=== PATIENT | female | born 1955 | race Caucasian/White ===

== ENCOUNTER → 2020-11-23 11:12 | Outpatient (CLI) | payer MEDICARE, SELFPAY ==
[2020-11-23 13:07] LABS: COVID19 -Nasal RAPID Negative (Negative)
== END ==
PROVIDERS: Visit Provider Physician Assistant
DX: Z20.822 Contact with and (suspected) exposure to COVID-19 (principal)
CPT/HCPCS: 87635; C9803

== ENCOUNTER 2020-11-25 09:18 | Day surgery (SDC) | payer MEDICARE, SELFPAY ==
[2020-11-23 14:50] VITALS: BMI 39.0
[2020-11-25] VITALS (19 sets, daily range): BP systolic 90–140; BP diastolic 39–83; PULSE 67–104; RESP 10–18; TEMP 35.6–36.8; O2SAT 85–99; BMI 37.0
[2020-11-25] MEDS: LACTATED RINGERS 1,000 ML 42 ML IV (10:05)
[2020-11-25] MEDS: CELECOXIB 200 MG CAPSULE PO (10:08)
[2020-11-25] MEDS: ACETAMINOPHEN 325 MG TABLET 975 MG PO (10:08)
--- NOTE | 2020-11-25 10:14 | PM.PREOP ---
Pre-operative Note COVID-19 COVID-19 status: Negative Result date/Date tested (Pos, Neg/Pending): 11/23/20 Interval Note History & Physical reviewed/Exam performed by Physician: Yes Changes to H&P: No H&P completed within 30 days and has changed as indicated here:: Plan for R TKA
[2020-11-25] MEDS: CEFAZOLIN 2 GM/100 ML FROZ.PIGGY IV ×2 (10:43→18:56)
[2020-11-25] MEDS: TRANEXAMIC ACID 1,000 MG in SODIUM CHLORIDE 0.9% 100 ML 400 ML IV ×2 (11:00→12:16)
--- NOTE | 2020-11-25 11:00 | DI.RAD.S_ITS ---
PROCEDURE: XR KNEE RT 1TO2V INDICATIONS: RIGHT TOTAL KNEE TECHNIQUE: 2 view(s) of the knee acquired. COMPARISON: None. FINDINGS: Bones: Patient is status post knee joint arthroplasty. Hardware components are in expected positions. Visualized bony structures are intact. Soft tissues: Overlying postoperative changes are noted. IMPRESSION: Expected appearance following knee arthroplasty. Dictated by: El Graf M.D. on 11/25/2020 at 16:44 Approved by: El Graf M.D. on 11/25/2020 at 16:44
--- NOTE | 2020-11-25 11:13 | SUR.OPER ---
Supine on padded OR bed, head on pillow, arms secured on padded arm boards at <90 degrees abduction, right knee is flexed at [address] Bolden knee positioner, padded foam brace at right thigh, safety belt at pelvis, folded bath blanket under heel of operative foot, tape over blanket over left lower leg.
[2020-11-25] MEDS: ROPIVACAINE 0.5% PF 5 MG/ML 20ML VIAL 10 ML INJ (11:28)
[2020-11-25] MEDS: MORPHINE 4 MG/ML INJ IM (11:29)
[2020-11-25] MEDS: KETOROLAC 30 MG/ML VIAL IM (11:31)
--- NOTE | 2020-11-25 12:46 | P.OP_ITS ---
Operative Date/Time/Diagnoses Date of procedure: 11/25/20 Time of procedure: 12:46 Pre-op diagnosis: right knee OA Post-op diagnosis: same Procedure & Clinicians Procedure: Right total knee arthroplasty Same procedure as scheduled: Yes Indications: Right knee osteoarthritis resistant to further conservative measures Surgeon: Mac Bolden Contact Lens Edge Buffer: Patrice Lombardi Anesthesia Type: General and Spinal Operative Notes Findings: Left knee osteoarthritis with [id number] articulation and large osteophytes. Closure Type: primary Specimen(s): none sent Prosthetic devices, grafts, tissues, transplants, or devices: Sanchez and nephew Journey 2 CR size 4 right Oxinium femur Size 3 right Journey tibial base plate Size 3-4 right 10 mm thick Journey 2 deep dish polyethylene 32 mm oval patellar button Estimated Blood Loss (mL): 200 Blood products transfused: none Tourniquet time (min): 72 Procedure in detail: Patient was met in the preoperative holding area where the site and side of surgery were marked by . informed consent had been reviewed in clinic was also reviewed the preoperative holding area. All last minute questions were answered. Patient was then brought back to the operating room where she received a spinal anesthetic then was induced under general anesthesia. The right thigh had a nonsterile tourniquet placed in the right lower extremity then prepped and draped in normal sterile fashion. A surgical time-out was performed verifying site and side of surgery as well as the name of the patient. An Esmarch was used to exsanguinate the right lower extremity and tourniquet was inflated 250 mm of mercury. A longitudinal incision over the anterior aspect of the knee was made in the skin using 10. Blade. A new 10. Blade was then used to elevate medial lateral flaps. A medial but parapatellar arthrotomy was then performed a medial peel was then performed as well as removal of Hoffa's fat pad. This point House's line was then marked as well as the entry site for the femoral drill and the tibial drill. The ACL was removed as well as the lateral meniscus. This point the drill was then used to enter the femoral and tibial canals respectively. Intramedullary casa was placed inside the femur and a 5 degree right knee cutting block was then placed. This was pinned in the neutral slot cut the neutral slot. Intramedullary casa was then placed inside the tibia and the tibial block was pinned into place using the out box machine operator. A drop casa was then used for final tuning of the cutting block for the tibia. This was a 3rd pin was then placed. Tibial cut was then made with the oscillating saw taking care to not cut the patellar tendon MCL or the PCL. Tibial cut was then removed as well as the medial meniscus. This point the knee was brought into full extension and a 10 mm block balanced the knee in varus valgus and had full extension. The knee was then brought into flexion and the gap machine assistant was used and rotation was marked. This was compared to Whitesides line and compared to the epicondylar access which showed external rotation. Femur was then sized to size 4. A 5 in 1 size 4 cutting block was then pinned into place and all 5 cuts were then made. The cutting block was then removed as well as bony fragments. A trial size 4 right femoral component was then placed on the femur as well as a size 3 tibia with a 10 mm polyethylene. Tibial external rotation was marked using floating technique. The knee was balanced in varus valgus in extension through mid flexion flexion range of motion. The PCL was not overly tight. The patella was then freehan cut and was drilled for 32 mm oval button this button trial was then placed the knee was brought through range of motion with excellent patellar tracking. Trials were then removed local anesthetic was infiltrated into the periarticular soft tissues. The tibial tray was then placed back on the tibia and drilled and punched. Bony fragments were then placed inside the tibial canal and a femoral bone plug was then placed as well. Pulse lavage then used to thoroughly irrigate the cut surfaces of the femur tibia and patella. Cut surfaces were then dried. Cement was then mixed. Cement was then packed onto the cut surface of the tibia as well as the tibial keel hole. Cement was placed on the backside of the tibial tray. This was then malleted into place excess cement was removed. We then turned our attention to the femoral side cement was then finger packed on the cut surface of the femur as well as the locals. And placed on the feet of the femoral component. While trying to place the femoral component the femoral component kept this engaging from the impactor femur was attempted to be placed 4 times every time the instrumentation failed. At this point cement was then removed from the femur as well as the feet of the femoral component the cement on the tibia was allowed to fully cure. A new batch of cement was then mixed a new impactor was then opened and the femoral component was a leaf fully seated onto the impactor. Stem was placed into the feet of the femoral component as well as the cut surface of the femur with exception of the posterior condylar cut the component was then able to be successfully placed onto the femur. Excess cement was then removed. The 10 mm thick polyethylene was then placed and the knee was brought into full extension. Cement was then packed on the cut surface of the patella as well as between the patellar button clamped in place. Excess cement was then removed. Betadine was then placed in the wound allowed to sit for several minutes. At this point the tourniquet was let down hemostasis was obtained using electrocautery. The knee was then pulse lavaged with copious normal saline. The medial parapatellar arthrotomy was then closed over a radiolucent triangle. Closed with interrupted 1. Vicryl followed by running Quill suture followed by running 2 Vicryl in the fat layer followed by interrupted 2-0 Vicryl in the subcutaneous layer followed by running 3-0 Stratafix followed by Dermabond and Aquacel dressing Complications: none Post-operative Condition: stable Disposition: PACU Plan for aftercare: 24 hours post-op abx, ASA 81mg BID for 6 weeks for DVT prophyalxis, WBAT RLE
[2020-11-25] MEDS: OXYCODONE IR 5 MG TABLET PO (13:16)
[2020-11-25] MEDS: ONDANSETRON 4 MG/2 ML INJ IV ×2 (13:17→20:04)
[2020-11-25] MEDS: LACTATED RINGERS 1,000 ML 100 ML IV (14:49)
[2020-11-25] MEDS: IBUPROFEN 400 MG TABLET PO ×2 (14:51→16:06)
[2020-11-25] MEDS: ACETAMINOPHEN 325 MG TABLET 650 MG PO (16:05)
[2020-11-25] MEDS: ONDANSETRON 4 MG ODT PO (16:05)
--- NOTE | 2020-11-25 16:34 | PC.NURSE ---
Addendum entered by Pastora Quinn R.N. 11/25/20 21:45: Pt reports right knee pain barely there. Bladder scanned for 275 cc's and pt denies need to void or urge to void. Will continue to encourage po intake and iv fluids continue to infuse as ordered. Addendum entered by Pastora Quinn R.N. 11/25/20 20:46: Pt has 50 cc's clear, bileous emesis. Belching, but denies passage of flatus. Prefers to hold off on hs oral meds. No further c/o pain. No change in neurovascular status to RLE. Pt reports tingling to feet BL continues to resolve and improve. Zofran iv administered for nausea. Pt states desires to sleep. 02 2L nc sats 90%. Pt declines oral meds when offered and states pain to right knee is beginning to climb to 3/10. Prefers iv pain meds at this time. Addendum entered by Pastora Quinn R.N. 11/25/20 19:55: Pt up to commode with assistance and unable to void. Returned to bed and bladder scanned for 246 cc's. Phone call to Dr. Hardin to request pt's home med, Advair BID and cepacol lozenges to treat throat irritation. Addendum entered by Pastora Quinn R.N. 11/25/20 19:07: Pt reports nausea improved. Resting quietly. 02 2L per nc with sleep 91-93%. Addendum entered by Pastora Quinn R.N. 11/25/20 18:32: Pt reports right knee pain 4-5/10, but admits to nausea. Administered reglan as ordered. Denies urge to void. Addendum entered by Pastora Quinn R.N. 11/25/20 17:29: Pt reports pain to right knee increasing to 8/10. States nausea resolved. Administered 10 mg oxycodone and supported RLE on lengthwise pillow x 1 with ice packs x 2 to right knee. Pt now resting quietly in bed with eyes closed and reports pain is improving. Original Note: Pt awake and alert resting quietly in bed. Admits to slight nausea and zofran ODT was administered. Pt requests protein to eat and this was provided. Medicated with scheduled tylenol and ibuprofen as per emar for pain 3/10 to right knee, dull in nature. Saul wrap to right knee dry and intact and ice to site. Pt admits to tingling to feet BL and is able to wiggle toes to feet BL and reports positive sensation when touched. Palpable pedal pulses BL. 02 @ 1.[address] with continuous pulse oximeter measuring 92%. I.S. @ bedside. Pt's spouse @ bedside. BL calf scd's in place. Encouraged pt to call for needs or if desires additional pain medications. Pt verbalizes understanding and agreement.
[2020-11-25] MEDS: OXYCODONE IR 5 MG TABLET 10 MG PO (16:58)
[2020-11-25] MEDS: METOCLOPRAMIDE 10 MG/2 ML INJ IV (18:17)
[2020-11-25] MEDS: BENZOCAINE/MENTHOL 1 LOZ PKT 1 EACH PO (20:02)
[2020-11-25] MEDS: HYDROMORPHONE 0.5 MG INJ 0.2 MG IV (20:56)
[2020-11-25] MEDS: FLUTICASONE/SALMETEROL 250/50 60 PUFF DISKUS INH (21:20)
[2020-11-26] MEDS: HYDROMORPHONE 0.5 MG INJ 0.2 MG IV ×2 (01:46→04:39)
[2020-11-26] MEDS: LACTATED RINGERS 1,000 ML 100 ML IV (01:47)
--- NOTE | 2020-11-26 02:22 | PC.NURSE ---
Pt. get up OOB to the BSC, tried to void without any success. Bladder scanned per acute care bladder scanned 316 cc noted. ER bladder scanner noted 334 cc. Does not have an urged to urinate, reported last void was 1000 AM yesterday. Did not drink much water due to nausea, C/O acid reflux HOB elevated to 15 degrees. declined PO pain medication but requested IVP Dilaudid 0.2 mg. States I don't want to put something in my stomach right now. Will cont. POC & monitor.
[2020-11-26] MEDS: CEFAZOLIN 2 GM/100 ML FROZ.PIGGY IV (02:55)
[2020-11-26] MEDS: PANTOPRAZOLE 20 MG TABLET PO (04:28)
[2020-11-26] MEDS: IBUPROFEN 400 MG TABLET PO ×2 (05:09→08:39)
[2020-11-26 05:20] VITALS: BP 145/73; PULSE 111; RESP 18; TEMP 36.5; O2SAT 96
[2020-11-26 05:58] LABS: Hematocrit 35.4 % (36-46); Hemoglobin 11.8 g/dL (12.0-16.0)
[2020-11-26] MEDS: LEVOTHYROXINE 50 MCG TABLET PO (06:02)
[2020-11-26] MEDS: OXYCODONE IR 5 MG TABLET PO ×2 (06:39→13:08)
--- NOTE | 2020-11-26 06:49 | PC.NURSE ---
Pt. voided 200 cc the bladder scanned PVR 354 cc. Then she C/O bladder discomfort on her right side. Bladder scanned again noted 413-425 cc. @ 0620 In & out cath. done drained 300 cc of dark yellow urine. Bladder discomfort resolved, but C/O Rt. knee pain rated pain level 3-4/10. Medicated with 5 mg. of Percolone, denies any nausea & acid reflux. Will cont. POC & monitor.
--- NOTE | 2020-11-26 07:40 | PM.PNPO.1 ---
Subjective Subjective Date Patient Seen: 11/26/20 Time Patient Seen: 07:40 Interval history: Patient states she is doing well. She reports good sensation throughout the bilateral lower extremities. At this time she denies fever, chills, nausea, shortness of breath, or chest pain. She states that she has been able to walk with a front wheel walker in her room to use the commode. She reports that she is looking forward to working with physical therapy. Exam Vital Signs (past 8 hours): - 11/26/20 05:20 Temperature 97.7 F Pulse Rate 111 H Respiratory Rate 18 Blood Pressure 145/73 H Pulse Oximetry 96 Oxygen Delivery Method Nasal Cannula Oxygen Flow Rate 1 Narrative Exam Narrative: 65-year-old female postop day 1. Patient is resting comfortably in bed, is in no acute distress, is alert and oriented x3. Skin is warm and dry, and the skin surrounding the incision is free of warmth, erythema, induration, or discharge. Good sensation appreciated throughout the bilateral lower extremities, palpable pulses appreciated. No other signs of DVT appreciated calves are soft and nontender bilaterally, negative Homans sign. Patient is able to flex the left hip without difficulty or discomfort, right hip flexion limited slightly due to pain. Ankle dorsiflexion, plantar flexion, eversion, inversion are performed bilaterally without difficulty or discomfort. Const General: cooperative, healthy appearing and comfortable Resp Effort & Inspection: normal respiratory effort and able to speak in complete sentences Skin General: no rashes or lesions noted Objective Labs Result Diagrams: 11/26/20 05:30 Labs: Laboratory Results - last 24 hr 11/26/20 05:30 Hgb 11.8 L Hct 35.4 L PFSH Medical History Arthritis Back pain Bipolar affect, depressed (~2015) Bulging lumbar disc (~2014) Cataract (lens) fragments in eye following cataract surgery, bilateral Cough Degenerative joint disease Depression DMII (diabetes mellitus, type 2) CASE (dyspnea on exertion) (~12/2019) Environmental allergies Former smoker GERD (gastroesophageal reflux disease) History of hepatitis History of IBS History of pneumonia Hyperlipidemia Hypertension Insomnia Lung nodules Murmur Obesity (BMI 30-39.9) Personal history of benign breast biopsy Primary osteoarthritis of both knees Scoliosis Shortness of breath Sleep apnea Spinal stenosis Stomach ulcer Tachycardia Thoracic disc herniation Thyroid disease Ureterolithiasis Surgical History H/O cataract extraction History of appendectomy History of bilateral carpal tunnel release History of bunionectomy History of colostomy History of hysterectomy History of tonsillectomy and adenoidectomy History of tubal ligation S/P cervical spinal fusion (~1998) Social History household members: spouse Smoking Status: Former smoker alcohol intake: never Assessment & Plan Post-op Postoperative Procedures: Procedures Operation Date: 11/25/20 10:45 Actual Procedures Side Surgeon p Total Knee Arthroplasty Right Mac Bolden MD Postoperative day: 1 Postoperative status: doing well Postoperative plan: ambulate Postoperative plan narrative: Patient is to work on ambulating with physical therapy with weight-bearing as tolerated. Continue aspirin 81 mg b.i.d. for 6 weeks for DVT prophylaxis. Patient is to keep dressing over incision dry and intact. Time Spent With Patient Time with patient: 15-24 minutes Quality VTE Deep Vein Thrombosis/Pulmonary Embolism Present on Admission: No
[2020-11-26 08:00] VITALS: BP 130/56; PULSE 107; RESP 17; TEMP 37.5; O2SAT 94
[2020-11-26 08:18] VITALS: PULSE 94; RESP 16; O2SAT 93
[2020-11-26] MEDS: FLUTICASONE/SALMETEROL 250/50 60 PUFF DISKUS INH (08:18)
[2020-11-26] MEDS: ASPIRIN EC 81 MG TABLET PO (08:39)
[2020-11-26] MEDS: DOCUSATE 100 MG CAPSULE PO (08:39)
[2020-11-26] MEDS: PRAVASTATIN 20 MG TABLET 40 MG PO (08:39)
[2020-11-26] MEDS: CYCLOBENZAPRINE 10 MG TABLET PO (08:40)
[2020-11-26] MEDS: ACETAMINOPHEN 325 MG TABLET 650 MG PO (08:40)
[2020-11-26] MEDS: SODIUM CHLORIDE 0.9% FLUSH 10 ML IV (08:46)
--- NOTE | 2020-11-26 09:14 | CM.DANOTE ---
DCP: Case received, EMR reviewed and met with patient. , Dwayne, was also at bedside. Introduced self and role. Was able to obtain information from patient regarding her baseline activity status prior to having her surgery. DCP assessment completed with information currently available. Patient is a 65 year old female who admitted yesterday morning to the care of the hospitalist team. PCP: [facility] (she is in the process of establishing with a provider there). Payer: confirmed: Medicare/[employer]. Patient came to the hospital for a surgical procedure. She had right total knee arthroplasty yesterday. She has history of osteoarthritis. Met with patient and . She was sitting up her chair having breakfast, alert and oriented. She has not yet worked with P.T. She resides in [place] with her spouse, Dwayne. She uses no DME at her baseline, and has been driving. P: DCP to continue to follow. Patient should be able to go home when medically stable and cleared by P.T. Barbara England RN/Pen Rider
--- NOTE | 2020-11-26 09:24 | P.DS_ITS ---
History of Present Illness History of Present Illness Date Patient Seen: 11/26/20 Time Patient Seen: 09:24 Chief complaint: OPB Narrative: Refer to previous HPI. Discharge Providers Provider Discharge Date: 11/26/20 Primary care physician: Doctor Swetha MD Consults: 11/25/20 11:14 Consult to Respiratory Therapy Evaluate & Treat Comment: BMI 37, ?GERALD, s/p TKA Physician Instructions: Evaluate and treat 11/25/20 14:32 Consult to Discharge Planning Routine Comment: Consult to Physical Therapy Evaluate & Treat Comment: Physician Instructions: postop TKA protocol Consult to Respiratory Therapy Evaluate & Treat Comment: Physician Instructions: Evaluate and treat Discharge provider: Greg Maurer PA-C Summary Hospital Course Discharge Diagnosis: Right knee osteoarthritis Status post right total knee arthroplasty Hospital Course: Patient was admitted to the hospital following the above-listed procedure for the above-listed diagnosis. Following the procedure the patient has been convalescing appropriately and her pain has been controlled with her current pain management regimen. Throughout the course of her stay in the hospital the patient has denied fever, chills, nausea, urinary retention, chest pain, or shortness of breath. Patient has tolerated her medications. The patient has also been able to ambulate in her room to use the commode. Status at Discharge Cognitive/behavioral status at discharge: oriented Functional status at discharge: uses cane/walker Overall status at discharge: patient is progressing back to baseline Time Spent with Patient Time spent: Greater than 30 minutes Exam Vital Signs (past 8 hours): - 11/26/20 05:20 11/26/20 08:00 11/26/20 08:18 Temperature 97.7 F 99.5 F Pulse Rate 111 H 107 H 94 H Respiratory Rate 18 17 16 Blood Pressure 145/73 H 130/56 L Pulse Oximetry 96 94 93 Oxygen Delivery Method Room Air Oxygen Flow Rate 0 Narrative Exam Narrative: 65-year-old female postop day 1. Patient is resting comfortably in bed, is in no acute distress, is alert and oriented x3. Skin is warm and dry, and the skin surrounding the incision site is free of warmth, erythema, induration, or discharge. Patient has good sensation throughout the bilateral lower extremities, palpable pulses appreciated. Calves are soft and nontender, negative Homans sign. No other signs of DVT pre shaded. Patient is able to flex the left hip without difficulty or discomfort, right hip flexion is slightly limited due to pain. Ankle inversion, eversion, plantar flexion, dorsiflexion performed bilaterally without difficulty or discomfort. Capillary refill is less than 2 seconds. Const General: cooperative, healthy appearing and comfortable Resp Effort & Inspection: normal respiratory effort and able to speak in complete sentences Skin General: no rashes or lesions noted Objective Labs Result Diagrams: 11/26/20 05:30 Labs: Laboratory Results - last 24 hr 11/26/20 05:30 Hgb 11.8 L Hct 35.4 L PFSH Medical History Arthritis Back pain Bipolar affect, depressed (~2015) Bulging lumbar disc (~2014) Cataract (lens) fragments in eye following cataract surgery, bilateral Cough Degenerative joint disease Depression DMII (diabetes mellitus, type 2) CASE (dyspnea on exertion) (~12/2019) Environmental allergies Former smoker GERD (gastroesophageal reflux disease) History of hepatitis History of IBS History of pneumonia Hyperlipidemia Hypertension Insomnia Lung nodules Murmur Obesity (BMI 30-39.9) Personal history of benign breast biopsy Primary osteoarthritis of both knees Scoliosis Shortness of breath Sleep apnea Spinal stenosis Stomach ulcer Tachycardia Thoracic disc herniation Thyroid disease Ureterolithiasis Surgical History H/O cataract extraction History of appendectomy History of bilateral carpal tunnel release History of bunionectomy History of colostomy History of hysterectomy History of tonsillectomy and adenoidectomy History of tubal ligation S/P cervical spinal fusion (~1998) Social History household members: spouse Smoking Status: Former smoker alcohol intake: never Discharge Assessment & Plan Assessment and Plan Assessment: Patient is doing well and convalescing appropriately. Plan of Treatment: Patient is to continue outpatient physical therapy following discharge from hospital. The 1st postop appointment in the clinic is scheduled for 2 weeks following discharge from the hospital. Patient is to continue aspirin 81 mg b.i.d. for 6 weeks for DVT prophylaxis. Patient is to continue taking prescribed medications as directed. Pressing over the incision site is to remain dry and intact. If the dressing is to become soiled or saturated the patient is to contact the clinic. Any signs of fever, chills, shortness of b reath, or chest pain should be reported to the clinic. The patient should also contact the clinic with any concerns of redness, swelling, warmth, or discharge from the incision site. Discharge Plan Discharge Plan Patient Disposition: Home Discharge orders & Medications Discharge Orders: Discharge (Order); Ordered 11/26/20 Ordered By: Greg Maurer Prescriptions: New acetaminophen 325 mg Tablet 650 mg PO TID Qty: 90 RF: 0 aspirin 81 mg Tablet,Delayed Release (Dr/Ec) 81 mg PO BID Qty: 90 RF: 0 ibuprofen 400 mg Tablet 400 mg PO Q4HR Qty: 90 RF: 0 oxycodone 5 mg Tablet 10 mg PO Q4HR PRN (Reason: Pain, Severe (7-10)) Qty: 42 RF: 0 Continued celecoxib [Celebrex] 200 mg Capsule 200 mg PO BEDTIME RF: 0 cyclobenzaprine 10 mg Tablet 10 mg PO BID RF: 0 metformin 500 mg Tablet 500 mg PO BEDTIME RF: 0 pravastatin 40 mg Tablet 40 mg PO BID RF: 0 temazepam 30 mg Capsule 30 mg PO BEDTIME RF: 0 omeprazole 20 mg Capsule,Delayed Release(Dr/Ec) 20 mg PO DAILY RF: 0 levothyroxine 25 mcg Capsule 50 mcg PO DAILY RF: 0 Multivitamin Women 50 Plus 8 mg iron-400 mcg-300 mcg Tablet 1 tab PO DAILY RF: 0 metoprolol succinate 25 mg Capsule,Sprinkle,Er 24hr 25 mg PO BEDTIME RF: 0 Serevent Diskus 50 mcg/dose Blister With Device 1 inh INHALATION BID RF: 0 Follow up/Referrals: Doctor Swetha, [Primary Care Provider] - Diet/Activity/Treatments Diet: Diet as Tolerated Activity: Weight-bearing as tolerated the right lower extremity. Ambulation with front wheel walker. Skin/Wound/Dressing Care Report to your healthcare provider any signs of infection, such as:: chills, fever, night sweats, increased pain, unusual drainage and unusual redness Dressing: Dressing is to remain clean and dry. If the dressing is to become soiled or damaged contact the clinic. Visit Report/Discharge Packet Instructions: DI for Knee Replacement Stand Alone Forms: Surgery Discharge Discharge Data Primary Care Provider: Doctor Swetha Attending Provider: Mac Bolden VTE Deep Vein Thrombosis/Pulmonary Embolism Present on Admission: No
[2020-11-26] MEDS: OXYCODONE IR 5 MG TABLET 10 MG PO (09:35)
--- NOTE | 2020-11-26 10:45 | PT.IIE ---
Current Diagnoses Unilateral primary osteoarthritis, right knee (11/25/20) Surgery Performed Operation Date: 11/25/20 10:45 Actual Procedures p Total Knee Arthroplasty(Right) - Mac Bolden MD Surgical History (Last Reviewed 11/26/20 @ 09:28 by Greg Maurer PA-C) H/O cataract extraction History of appendectomy History of bilateral carpal tunnel release History of bunionectomy History of colostomy History of hysterectomy History of tonsillectomy and adenoidectomy History of tubal ligation S/P cervical spinal fusion (~1998) Medical History (Last Reviewed 11/26/20 @ 09:28 by Greg Maurer PA-C) Arthritis Back pain Bipolar affect, depressed (~2015) Bulging lumbar disc (~2014) Cataract (lens) fragments in eye following cataract surgery, bilateral Cough Degenerative joint disease Depression DMII (diabetes mellitus, type 2) CASE (dyspnea on exertion) (~12/2019) Environmental allergies Former smoker GERD (gastroesophageal reflux disease) History of hepatitis History of IBS History of pneumonia Hyperlipidemia Hypertension Insomnia Lung nodules Murmur Obesity (BMI 30-39.9) Personal history of benign breast biopsy Primary osteoarthritis of both knees Scoliosis Shortness of breath Sleep apnea Spinal stenosis Stomach ulcer Tachycardia Thoracic disc herniation Thyroid disease Ureterolithiasis Physical Therapy Inpatient Evaluation/Re-Eval M1 PT/OT-IP Prior Functional Status Start: 11/26/20 15:18 Freq: NEEDED Status: Active Protocol: Document 11/26/20 10:45 AB (Rec: 11/26/20 15:26 AB [id number]) Medical Review Prior Functional Status Medical History Reviewed Yes Communication able to make needs known Mobility and Gait pt stated that she is independent with all mobilities and ambulation without AD but occasionally uses a SPC Social History Household Members spouse Living Arrangements House Number of Floors (Floors) One Floor Number of Stairs To Enter/Railing? ramp to enter Home Environment Standard Height Toilet,Tub/ Shower Doors Home Equipment Front Wheel Walker,Straight Cane,Hand Held Shower,Grab Bars Near Toilet,Grab Bars In Shower M2 PT-IP Current Condition Start: 11/26/20 15:18 Freq: NEEDED Status: Active Protocol: Document 11/26/20 10:45 AB (Rec: 11/26/20 15:26 AB [id number]) Physical Therapy Current Condition Current Condition Evaluation Date 11/26/20 Treatment Diagnosis s/p R TKA; difficulty in walking Onset Date 11/25/20 Weight Bearing Status Weight Bearing Status Weight Bear as Tolerated Allowed Weight Bearing Amount (enter % RLE WBAT or #) (%) M3 PT-IP Subjective Start: 11/26/20 15:18 Freq: NEEDED Status: Active Protocol: Document 11/26/20 10:45 AB (Rec: 11/26/20 15:26 AB [email or web address]) Subjective Physical Therapy Visit Type Type Initial Evaluation Visit Start Time 10:45 Visit Stop Time 11:16 Total Visit Minutes 29 Number of SHERIFF SERGEANT Visits 0 Physical Therapy Visit Comments Patient Comments pt is agreeable to do PT Therapy Pain Assessment Pain When Pain Assessed At Rest Pain Present Pain Present Pain Reported Location Right Knee Intensity 3 Scale Used Numeric (0 - 10) Pain Management Techniques Apply Cold,Distraction, Modification of Treatment,Re- positioning,Timing of Activity with Medications M4 PT-IP Mobility and Gait Start: 11/26/20 15:18 Freq: NEEDED Status: Active Protocol: Document 11/26/20 10:45 AB (Rec: 11/26/20 15:26 AB [email or web address]) PT-Bed Mobility Assessment Supine to Sit Supine to Sit Standby Assistance Sit to Supine Sit to Supine Independent Scooting Scooting to Edge of Bed Standby Assistance PT-Transfer Assessment Sit to and From Stand Sit to and from Stand Standby Assistance Equipment Transfer Assistive Device Gait Belt,Front Wheeled Walker Orthotic/Prosthetic Devices or Brace: No Comments Mobility Comments completed supine to sit SBA. completed sit to stand SBA and ambulated ~ 40 ft using FWW SBA. pt requested to go back to bed and completed sit to supine SBA. educated pt on ROM of R knee and pt understood. Gait Assessment Gait Gait Assistance Required: Standby Assistance Distance (Feet) 40 Able to Maintain Weight Bearing Status Yes During Gait Assistive Devices Assistive Device Gait Belt,Front Wheeled Walker Orthotic/Prosthetic Devices or Brace: No Gait Deviations General Gait Pattern Decreased Stride Length, Decreased Feet Clearance,Step- to Gait Factors Limiting Gait Function Factors Limiting Gait Function Decreased Activity Tolerance, Decreased Strength,Limited Range of Motion,Pain,Poor Balance,Poor Safety Awareness PT-Balance Assessment Sitting Balance and Reactions Static Sitting Balance Ability Good Dynamic Sitting Balance Ability Good Standing Balance and Reactions Static Standing Balance Ability Fair Dynamic Standing Balance Ability Fair Device Used FWW M5 PT-IP Objective Assessments Start: 11/26/20 15:18 Freq: NEEDED Status: Active Protocol: Document 11/26/20 10:45 AB (Rec: 11/26/20 15:26 AB [id number]) Orientation Orientation/Cognition Level of Alertness Alert Orientation Name,Place,Situation Language Function Ability No Deficits Noted Safety Awareness Understands Safety Issues Memory Description No Deficits Noted Gross Range of Motion Lower Extremity ROM Assessment Right Impaired Impairments R knee flexion: ~ 50 deg R knee extension: ~ 30 deg less to 0 Strength Lower Extremity Strength Assessment Right Impaired Hip 4- Knee 3+/5 Muscle Tone Muscle Tone WNL Yes M6 PT-IP Treatment Start: 11/26/20 15:18 Freq: NEEDED Status: Active Protocol: Document 11/26/20 10:45 AB (Rec: 11/26/20 15:26 AB [email or web address]) Physical Therapy Treatment Exercises Exercises Heel Slides Education Education Provided Precautions,Weight Bearing Status,Post-Op Packet,Safety M7 PT-IP Assessment and Plan Start: 11/26/20 15:18 Freq: NEEDED Status: Active Protocol: Document 11/26/20 10:45 AB (Rec: 11/26/20 15:26 AB [id number]) PT Summary Assessment and Plan Potential Rehabilitation Potential Good Status of Condition at Evaluation Stable Summary Impairments Pain,ROM,Strength,Balance, Coordination,Sensation,Tone, Cognition,Bed Mobility, Transfers,Gait,Activity Tolerance Assessment Summary pt requiring SBA with mobility and plans to go home with spouse to assist her. pt stated that she has outpt PT already set up. pt may go home when medically stable. Goals Bed Mobility Goal Independent Transfer Goal Independent,Front Wheeled Walker Gait Goal Independent,Front Wheel Walker Gait Distance 200 Days to Meet Goals 3 Frequency of Treatment Frequency Of Treatment Twice a Day Treatment Plan Physical Therapy Treatment Plan Bed Mobility Training,Transfer Training,Gait Training, Therapeutic Exercise,Balance Retraining,Post Op Education, Discharge Planning,Hot or Cold Pack,Neuromuscular Re-ed, Coordination Retraining,Manual Therapy Recommendations To Nursing Amount of Assist Needed 1 Person Assist Discharge Recommendations PT Discharge Recommendations Home with Assistance, Outpatient PT Transportation Needs at Discharge Private Vehicle
--- NOTE | 2020-11-26 11:50 | CM.DPNOTE ---
Awaiting ride for home. Ride to arrive about 1230
[2020-11-26 12:00] VITALS: BP 111/61; PULSE 120; RESP 18; TEMP 37.1; O2SAT 95
[2020-11-26] MEDS: ONDANSETRON 4 MG ODT PO (12:17)
--- NOTE | 2020-11-26 13:15 | PC.NURSE ---
Patient cleared by P.T. for discharge to home with her . Discharge and medication instructions and home care instructions reviewed with patient, she states understanding and has no further questions or concerns at this time. IV dc'd intact. Escorted out via wheelchair by [employer] with all belongings. Patient states she has follow up appointment with ortho scheduled. Instructed to call surgeon with questions or concerns.
== END 2020-11-26 13:20 | disposition home or self-care (01) ==
LOC: OR 09:20 → AC 09:21
PROVIDERS: Referring Provider Orthopaedic Surgery Adult Reconstructive Orthopaedic Surgery; Visit Provider Orthopaedic Surgery Adult Reconstructive Orthopaedic Surgery
PROC: 0SRC0JZ Replacement of Right Knee Joint with Synthetic Substitute, Open Approach (ICD-10-PCS; CPT 27447; principal; 2020-11-25 10:45)
DX: M17.11 Unilateral primary osteoarthritis, right knee (principal); E11.9 Type 2 diabetes mellitus without complications; Z79.84 Long term (current) use of oral hypoglycemic drugs; I10 Essential (primary) hypertension; K21.9 Gastro-esophageal reflux disease without esophagitis; E66.9 Obesity, unspecified; Z68.37 Body mass index [BMI] 37.0-37.9, adult; E03.9 Hypothyroidism, unspecified; G47.30 Sleep apnea, unspecified; M25.761 Osteophyte, right knee
CPT/HCPCS: 27447; 36415; 73560; 82962; 85014; 85018; 94640; 94762; 97161; C1776; J0330; J0690; J1170; J1885; J2250; J2270; J2274; J2405; J2704; J2765; J3010